=== PATIENT | female | born 1990 | race Two or more races ===

== ENCOUNTER 2023-11-04 17:23 | Emergency (ER) | payer OTHER ==
[~2023-11-04] VITALS: Ht 175.3 cm; Wt 104.3 kg
[2023-11-04] MEDS ORDERED: CARDIZEM30 MG (17:36)
[2023-11-04] MEDS ORDERED: PRENATABS RX T1 EACH (17:36)
[2023-11-04] MEDS ORDERED: PROGESTERONE100 M1 (17:36)
[2023-11-04 18:59] LABS: HEMATOCRIT 42.7 % (36.0-45.00); HEMOGLOBIN 14.3 g/dL (12.0-15.00); MEAN CELL VOLUME 91.7 fL (80.00-100.00); MEAN CORPUSCULAR HEMOGLOBIN 30.7 pg (27.00-32.0); MEAN CORPUSCULAR HGB CONC 33.5 g/dl (32.0-36.0); PLATELET COUNT 223 K/uL (150-450); RED BLOOD COUNT 4.66 M/uL (4.00-6.00); RED CELL DISTRIBUTION WIDTH 13.8 % (11.5-14.5)
[2023-11-04 19:03] LABS: PH,URINE 6.5 (5.0-8.0); URINE APPEARANCE Clear; URINE BILIRRUBIN Negative (NEGATIVE); URINE BLOOD Large; URINE COLOR Orange; URINE GLUCOSE Negative (NEGATIVE); URINE LEUKOCYTE Small; URINE NITRATE Negative; URINE PROTEIN 30 (NEGATIVE)
[2023-11-04 19:05] LABS: URINE BACTERIA 3090.5 uL (0.0-1933); URINE RBC 537.3 uL (0.0-20.8); URINE WBC 63.8 uL (0.0-23.2)
[2023-11-04 19:52] LABS: CALCIUM 8.5 mg/dL (8.5-10.1); CREATININE SERUM 0.9 mg/dL (0.55-1.02); GFR 73.03; POTASSIUM 3.71 mEq/L (3.5-5.1)
== END 2023-11-05 01:07 | disposition home or self-care (01) ==
LOC: ER 17:23
PROVIDERS: Emergency Medicine
DX: O20.0 Threatened abortion (principal); R10.2 Pelvic and perineal pain

== ENCOUNTER 2025-01-27 14:51 | Outpatient (CLI) | payer OTHER ==
[~2025-01-27 14:51] MED LIST: CARDIZEM30 MG; PRENATABS RX T1 EACH; PROGESTERONE100 M1
[2025-01-27] MEDS ORDERED: HYDRALAZINE HCL25 MG PO (14:54)
[2025-01-27 15:01] VITALS: BP 108/65
[2025-01-27 15:10] VITALS: BP 108/65
[2025-01-27 16:58] VITALS: BP 120/70
== END 2025-01-27 17:03 | disposition home or self-care (01) ==
LOC: NST 14:51 → OBS/DEL 14:51
PROVIDERS: ATTEND Obstetrics & Gynecology
DX: O26.899 Other specified pregnancy related conditions, unspecified trimester (principal); T14.8XXA Other injury of unspecified body region, initial encounter; W19.XXXA Unspecified fall, initial encounter

== ENCOUNTER 2025-02-07 10:08 | Outpatient (CLI) | payer OTHER ==
[~2025-02-07 10:08] MED LIST changes: +HYDRALAZINE HCL25 MG PO
== END 2025-02-07 12:28 | disposition home or self-care (01) ==
LOC: NST 10:08
PROVIDERS: ATTEND Obstetrics & Gynecology Maternal & Fetal Medicine
DX: Z3A.27 27 weeks gestation of pregnancy (principal)

== ENCOUNTER 2025-02-27 18:43 | Outpatient (CLI) | payer OTHER ==
[2025-02-27 17:54] VITALS: BP 133/75
[2025-02-27] MEDS ORDERED: RINGERS SOLUTION,LACTATED 1,000 ML IV SCH (19:00)
[2025-02-27 19:53] LABS: URINE BACTERIA 630.3 uL (0.0-1933); URINE EPITHELIAL CELLS 30.8 uL (0.0-38.8); URINE RBC 8.6 uL (0.0-20.8); URINE WBC 13.4 uL (0.0-23.2)
[2025-02-27 19:55] LABS: URINE APPEARANCE Clear; URINE BILIRRUBIN Negative (NEGATIVE); URINE BLOOD Negative; URINE COLOR Yellow; URINE GLUCOSE Negative (NEGATIVE); URINE LEUKOCYTE Negative; URINE NITRATE Negative; URINE PROTEIN Negative (NEGATIVE); URINE UROBILINOGEN 0.2 E.U./dl
[2025-02-27 19:59] LABS: BASO % 0.3 % (0.1-1.2); EOS # 0.08 (0.04-0.54); EOS % 0.8 % (0.7-7.0); HEMATOCRIT 33.5 % (34.1-44.9); HEMOGLOBIN 11.8 g/dL (11.2-15.7); LYMPH # 1.99 (1.18-3.74); LYMPH % 19.1 % (19.3-53.1); MEAN CORPUSCULAR HEMOGLOBIN 31.8 pg (25.6-32.2); MONO # 0.71 (0.24-0.82); MONO % 6.8 % (4.7-12.5); NEUT # 7.54 (1.56-6.13); NEUT % 72.5 % (34.0-71.1); PLATELET COUNT 192 K/uL (163-369); RED BLOOD COUNT 3.71 M/uL (3.93-5.22); RED CELL DISTRIBUTION WIDTH 13.5 % (11.6-14.4); URINE KETONE 40 (NEGATIVE)
[2025-02-27 20:17] LABS: ALBUMIN 2.6 gm/dL (3.4-5.0); BILIRUBIN TOTAL 0.48 mg/dL (0.3-1.2); CALCIUM 8.2 mg/dL (8.5-10.1); CREATININE SERUM 0.57 mg/dL (0.55-1.02); GFR 122.92; GLOBULINA 2.9 G/DL (2.4-3.5); POTASSIUM 3.1 mEq/L (3.5-5.1); TOTAL PROTEIN 5.5 gm/dL (6.4-8.2)
[2025-02-27 23:08] VITALS: BP 121/79
[2025-02-28 06:13] VITALS: BP 106/68; O2SAT 97
[2025-02-28 08:55] VITALS: BP 106/68
== END 2025-02-28 09:54 | disposition home or self-care (01) ==
LOC: OBS/DEL 18:43
PROVIDERS: ATTEND Obstetrics & Gynecology
DX: O26.853 Spotting complicating pregnancy, third trimester (principal); Z3A.30 30 weeks gestation of pregnancy

== ENCOUNTER → 2025-03-10 | Outpatient (CLI) | payer OTHER | END | disposition home or self-care (01) | LOC: NST 09:37 | PROVIDERS: ATTEND Obstetrics & Gynecology Gynecology | DX: Z34.83 Encounter for supervision of other normal pregnancy, third trimester (principal) ==

== ENCOUNTER 2025-03-19 15:34 | Inpatient (IN) | payer OTHER ==
[~2025-03-19] VITALS: Ht 180.3 cm; Wt 1.8 kg
[2025-03-19 15:09] VITALS: BP 144/86
[2025-03-19] MEDS ORDERED: PRENATABS RX T1 EACH PO (15:38)
[2025-03-19] MEDS ORDERED: CHILDREN'S ASPI81 MG PO (15:38)
[2025-03-19] MEDS ORDERED: FOLIC ACID20 MG PO (15:38)
[2025-03-19] MEDS ORDERED: HYDRALAZINE HCL25 MG PO (15:39)
[2025-03-19] MEDS ORDERED: LABETALOL HCL 100 MG TABLET PO ONE (15:44)
[2025-03-19] MEDS ORDERED: LABETALOL HCL 200 MG TABLET PO SCH (15:45)
[2025-03-19] MEDS ORDERED: BETAMETHASONE ACETATE,SOD PHOS 30 MG/5 ML ML ONE (16:09)
[2025-03-19 16:13] LABS: BASO % 0.1 % (0.1-1.2); EOS # 0.06 (0.04-0.54); EOS % 0.7 % (0.7-7.0); LYMPH # 1.57 (1.18-3.74); LYMPH % 18.4 % (19.3-53.1); MEAN PLATELET VOLUME 13.10 fl (9.4-12.4); MONO # 0.85 (0.24-0.82); MONO % 10.0 % (4.7-12.5); NEUT # 6.02 (1.56-6.13); NEUT % 70.4 % (34.0-71.1); RED CELL DISTRIBUTION WIDTH 13.5 % (11.6-14.4); URINE APPEARANCE Cloudy; URINE BILIRRUBIN Negative (NEGATIVE); URINE BLOOD Negative; URINE COLOR Yellow; URINE GLUCOSE Negative (NEGATIVE); URINE KETONE Negative (NEGATIVE); URINE LEUKOCYTE Trace; URINE NITRATE Negative; URINE PROTEIN Negative (NEGATIVE); URINE UROBILINOGEN 1.0 E.U./dl
[2025-03-19] MEDS ORDERED: BETAMETHASONE ACETATE,SOD PHOS 30 MG/5 ML ML IM SCH (16:15)
[2025-03-19] MEDS ORDERED: ACETAMINOPHEN 500 MG GEL..CAP PO PRN (16:15)
[2025-03-19 16:17] LABS: URINE BACTERIA 1309.6 uL (0.0-1933); URINE EPITHELIAL CELLS 77.2 uL (0.0-38.8); URINE WBC 34.1 uL (0.0-23.2)
[2025-03-19 16:42] LABS: URINE RBC 1.1 uL (0.0-20.8)
[2025-03-19 16:43] LABS: TYPE CELLS SQUAMOUS; URINE CAST 0.14 uL (0.0-1.40)
[2025-03-19 17:07] LABS: ALT/SGPT 37.0 U/L (12-78); AST/SGOT 19.0 U/L (15-37); BILIRUBIN TOTAL 0.5 mg/dL (0.3-1.2); BUN CREA RATIO 19.0 (7.0-25.0); CREATININE SERUM 0.52 mg/dL (0.55-1.02); GFR 136.65; GLOBULINA 2.8 G/DL (2.4-3.5); GLUCOSE FASTING 88.0 mg/dL (65-100); OSMOLALITY SERUM 283.0 MOSM/KG (275-295)
[2025-03-19 18:51] VITALS: BP 133/83
[2025-03-19 23:11] VITALS: BP 130/79
[2025-03-20 04:00] VITALS: BP 131/79
[2025-03-20 07:23] VITALS: BP 128/73
[2025-03-20 08:13] VITALS: BP 138/80
[2025-03-20] MEDS ORDERED: PNV,CALCIUM 72/IRON/FOLIC ACID 1 TAB TABLET PO SCH (09:00)
[2025-03-20 09:20] VITALS: BP 144/93
[2025-03-20 16:37] VITALS: BP 145/94
[2025-03-20 19:58] VITALS: BP 140/90
[2025-03-20] MEDS ORDERED: ONDANSETRON 4 MG TAB.RAPDIS PO PRN (20:00)
[2025-03-20] MEDS ORDERED: ONDANSETRON 4 MG TAB.RAPDIS PO ONE (20:04)
[2025-03-21 01:00] VITALS: BP 132/76
[2025-03-21 08:00] VITALS: BP 130/80
[2025-03-21] MEDS ORDERED: LABETALOL HCL 300 MG TABLET PO SCH (09:00)
[2025-03-21 12:45] VITALS: BP 131/83
[2025-03-21 15:54] VITALS: BP 130/70
[2025-03-21 20:00] VITALS: BP 150/80; O2SAT 99
[2025-03-21 23:58] VITALS: BP 130/90
[2025-03-22] VITALS (7 sets, daily range): BP systolic 125–144; BP diastolic 70–91; O2SAT 98
[2025-03-22] MEDS ORDERED: BISACODYL 5 MG TABLET.EC PO SCH (20:15)
[2025-03-22] MEDS ORDERED: ACETAMINOPHEN 500 MG GEL..CAP PO ONE (22:02)
[2025-03-23 03:52] VITALS: BP 133/83
[2025-03-23 07:06] VITALS: BP 141/88
[2025-03-23 10:59] VITALS: BP 150/100
[2025-03-23 12:11] LABS: BASO % 0.2 % (0.1-1.2); EOS # 0.07 (0.04-0.54); EOS % 0.6 % (0.7-7.0); LYMPH # 1.12 (1.18-3.74); LYMPH % 9.2 % (19.3-53.1); MEAN PLATELET VOLUME 13.90 fl (9.4-12.4); MONO # 0.89 (0.24-0.82); MONO % 7.3 % (4.7-12.5); NEUT # 9.96 (1.56-6.13); NEUT % 82.3 % (34.0-71.1); RED CELL DISTRIBUTION WIDTH 14.2 % (11.6-14.4)
[2025-03-23 12:32] LABS: ALT/SGPT 83.0 U/L (12-78); AST/SGOT 37.0 U/L (15-37); BILIRUBIN TOTAL 0.6 mg/dL (0.3-1.2); BUN CREA RATIO 20.0 (7.0-25.0); CREATININE SERUM 0.35 mg/dL (0.55-1.02); GFR 215.79; GLOBULINA 3.0 G/DL (2.4-3.5); GLUCOSE FASTING 73.0 mg/dL (65-100); OSMOLALITY SERUM 280.0 MOSM/KG (275-295)
[2025-03-23 16:18] VITALS: BP 140/70
[2025-03-23] MEDS ORDERED: CYCLOBENZAPRINE HCL 5 MG TABLET PO SCH (21:00)
[2025-03-24] MEDS ORDERED: LABETALOL HCL 300 MG TABLET PO SCH (01:00)
[2025-03-24 01:20] VITALS: BP 128/78
[2025-03-24 08:51] VITALS: BP 135/85
[2025-03-24 14:04] VITALS: BP 130/80
[2025-03-24 16:00] VITALS: BP 149/84
[2025-03-24 20:00] VITALS: BP 136/70
[2025-03-24 20:12] LABS: BASO % 0.1 % (0.1-1.2); EOS # 0.06 (0.04-0.54); EOS % 0.8 % (0.7-7.0); LYMPH # 1.03 (1.18-3.74); LYMPH % 13.1 % (19.3-53.1); MEAN PLATELET VOLUME 14.20 fl (9.4-12.4); MONO # 0.56 (0.24-0.82); MONO % 7.1 % (4.7-12.5); NEUT # 6.17 (1.56-6.13); NEUT % 78.5 % (34.0-71.1); RED CELL DISTRIBUTION WIDTH 14.1 % (11.6-14.4)
[2025-03-24 20:37] LABS: INR 0.98
[2025-03-24 20:38] LABS: ALT/SGPT 85.0 U/L (12-78); AST/SGOT 43.0 U/L (15-37); BILIRUBIN TOTAL 0.64 mg/dL (0.3-1.2); BUN CREA RATIO 14.0 (7.0-25.0); CREATININE SERUM 0.42 mg/dL (0.55-1.02); GFR 174.85; GLOBULINA 3.1 G/DL (2.4-3.5); GLUCOSE FASTING 85.0 mg/dL (65-100); OSMOLALITY SERUM 278.0 MOSM/KG (275-295)
[2025-03-25 01:01] VITALS: BP 115/68
[2025-03-25 08:29] VITALS: BP 123/81
[2025-03-25] MEDS ORDERED: OXYTOCIN 20 UNITS/500ML RL PIGGYBAG IV SCH (08:30)
[2025-03-25] MEDS ORDERED: ERYTHROMYCIN BASE OPHT 1GM EACH TUBE OP ONE (09:55)
[2025-03-25] MEDS ORDERED: OXYTOCIN 10 UNITS/ML VIAL ONE ×2 (09:55→14:29)
[2025-03-25 10:55] LABS: ALT/SGPT 85.0 U/L (12-78); AST/SGOT 38.0 U/L (15-37); BILIRUBIN TOTAL 0.5 mg/dL (0.3-1.2); BUN CREA RATIO 11.0 (7.0-25.0); CREATININE SERUM 0.46 mg/dL (0.55-1.02); GFR 157.42; GLOBULINA 3.2 G/DL (2.4-3.5); GLUCOSE FASTING 103.0 mg/dL (65-100); OSMOLALITY SERUM 284.0 MOSM/KG (275-295)
[2025-03-25] MEDS ORDERED: CLINDAMYCIN PHOSPHATE 150 MG/ML (900mg) ONE (10:58)
[2025-03-25] MEDS ORDERED: RINGERS SOLUTION,LACTATED 1,000 ML IV SCH (11:30)
[2025-03-25] MEDS ORDERED: MORPHINE SULFATE 4 MG/ML CARTRIDGE IV PRN (11:30)
[2025-03-25] MEDS ORDERED: MAGNESIUM SULFATE IN WATER 500 ML IV SCH (11:45)
[2025-03-25] MEDS ORDERED: OXYTOCIN 1,000 ML IV ONE (11:45)
[2025-03-25] MEDS ORDERED: ACETAMINOPHEN 500 MG GEL..CAP PO SCH (12:00)
[2025-03-25] MEDS ORDERED: KETOROLAC TROMETHAMINE 30 MG VIAL IV SCH (12:00)
[2025-03-25] MEDS ORDERED: ONDANSETRON HCL 2 MG/ML VIAL IV SCH (12:00)
[2025-03-25] MEDS ORDERED: MORPHINE SULFATE 4 MG/ML VIAL IV ONE ×2 (12:45→14:10)
[2025-03-25] MEDS ORDERED: MAGNESIUM SULFATE IN WATER 0.04 GM/ML IV.SOLN IV ONE ×2 (13:06→13:25)
[2025-03-25] MEDS ORDERED: KETOROLAC TROMETHAMINE 30 MG VIAL ONE (13:46)
[2025-03-25] MEDS ORDERED: KETOROLAC TROMETHAMINE 30 MG VIAL IV ONE (14:00)
[2025-03-25] MEDS ORDERED: OXYTOCIN 20 UNITS/1000ML RL PIGGYBAG IV ONE (14:00)
[2025-03-25 16:25] VITALS: BP 133/78
[2025-03-25] MEDS ORDERED: GABAPENTIN 300 MG CAPSULE PO SCH (17:00)
[2025-03-25] MEDS ORDERED: SIMETHICONE 125 MG CAPSULE PO SCH (17:00)
[2025-03-25 20:35] VITALS: BP 116/77
[2025-03-26 01:22] VITALS: BP 122/70
[2025-03-26 05:45] VITALS: BP 118/69
[2025-03-26 07:59] LABS: BASO % 0.2 % (0.1-1.2); EOS # 0.12 (0.04-0.54); EOS % 1.2 % (0.7-7.0); LYMPH # 1.62 (1.18-3.74); LYMPH % 16.6 % (19.3-53.1); MEAN PLATELET VOLUME 14.00 fl (9.4-12.4); MONO # 0.88 (0.24-0.82); MONO % 9.0 % (4.7-12.5); NEUT # 7.05 (1.56-6.13); NEUT % 72.6 % (34.0-71.1); RED CELL DISTRIBUTION WIDTH 14.0 % (11.6-14.4)
[2025-03-26 08:00] VITALS: BP 128/82
[2025-03-26] MEDS ORDERED: OxyCODONE HCL 5 MG TABLET (ROXICODONE) PO PRN (08:00)
[2025-03-26] MEDS ORDERED: KETOROLAC TROMETHAMINE 10 MG TABLET PO SCH (08:00)
[2025-03-26 08:06] LABS: ALT/SGPT 91.0 U/L (12-78); AST/SGOT 44.0 U/L (15-37); BILIRUBIN TOTAL 0.5 mg/dL (0.3-1.2); BUN CREA RATIO 13.0 (7.0-25.0); CREATININE SERUM 0.46 mg/dL (0.55-1.02); GFR 157.42; GLOBULINA 3.0 G/DL (2.4-3.5); GLUCOSE FASTING 68.0 mg/dL (65-100); OSMOLALITY SERUM 279.0 MOSM/KG (275-295)
[2025-03-26] MEDS ORDERED: DOCUSATE SODIUM 100MG CAP PO SCH (09:00)
[2025-03-26 17:00] VITALS: BP 136/90
[2025-03-26 21:00] VITALS: BP 128/84
[2025-03-27 00:23] VITALS: BP 124/75
[2025-03-27 05:42] VITALS: BP 130/72
[2025-03-27 08:00] VITALS: BP 141/84
[2025-03-27 08:07] LABS: BASO % 0.2 % (0.1-1.2); EOS # 0.12 (0.04-0.54); EOS % 1.4 % (0.7-7.0); LYMPH # 1.82 (1.18-3.74); LYMPH % 21.1 % (19.3-53.1); MEAN PLATELET VOLUME 13.90 fl (9.4-12.4); MONO # 0.75 (0.24-0.82); MONO % 8.7 % (4.7-12.5); NEUT # 5.89 (1.56-6.13); NEUT % 68.3 % (34.0-71.1); RED CELL DISTRIBUTION WIDTH 14.2 % (11.6-14.4)
[2025-03-27 08:47] LABS: ALT/SGPT 96.0 U/L (12-78); AST/SGOT 42.0 U/L (15-37); BILIRUBIN TOTAL 0.56 mg/dL (0.3-1.2); BUN CREA RATIO 15.0 (7.0-25.0); CREATININE SERUM 0.41 mg/dL (0.55-1.02); GFR 179.78; GLOBULINA 2.9 G/DL (2.4-3.5); GLUCOSE FASTING 61.0 mg/dL (65-100); OSMOLALITY SERUM 281.0 MOSM/KG (275-295)
[2025-03-27] MEDS ORDERED: NIFEDIPINE 30 MG TAB.SA.OSM PO SCH ×2 (09:19→17:00)
[2025-03-27 16:00] VITALS: BP 136/91
[2025-03-27 20:00] VITALS: BP 130/82
[2025-03-28 00:27] VITALS: BP 139/85
[2025-03-28 06:00] VITALS: BP 137/81
[2025-03-28 08:42] VITALS: BP 135/89
[2025-03-28 08:43] VITALS: BP 140/70
[2025-03-28 08:47] LABS: BASO % 0.2 % (0.1-1.2); EOS # 0.17 (0.04-0.54); EOS % 1.7 % (0.7-7.0); LYMPH # 1.94 (1.18-3.74); LYMPH % 19.1 % (19.3-53.1); MEAN PLATELET VOLUME 13.40 fl (9.4-12.4); MONO # 0.58 (0.24-0.82); MONO % 5.7 % (4.7-12.5); NEUT # 7.41 (1.56-6.13); NEUT % 72.9 % (34.0-71.1); RED CELL DISTRIBUTION WIDTH 14.1 % (11.6-14.4)
[2025-03-28 09:29] LABS: ALT/SGPT 146.0 U/L (12-78); AST/SGOT 68.0 U/L (15-37); BILIRUBIN TOTAL 0.6 mg/dL (0.3-1.2); BUN CREA RATIO 11.0 (7.0-25.0); CREATININE SERUM 0.55 mg/dL (0.55-1.02); GFR 128.09; GLOBULINA 3.4 G/DL (2.4-3.5); GLUCOSE FASTING 121.0 mg/dL (65-100); OSMOLALITY SERUM 286.0 MOSM/KG (275-295)
[2025-03-28 14:07] VITALS: BP 132/84
[2025-03-28 16:05] VITALS: BP 135/85
[2025-03-29] VITALS: BP 130/80
[2025-03-29 04:00] VITALS: BP 129/77
[2025-03-29] MEDS ORDERED: MAGNESIUM SULFATE IN WATER 500 ML IV SCH (07:45)
[2025-03-29 08:00] VITALS: BP 125/70
[2025-03-29 16:54] VITALS: BP 143/88
[2025-03-30 00:22] VITALS: BP 131/88
[2025-03-30 04:00] VITALS: BP 126/85
[2025-03-30 06:42] LABS: BASO % 0.3 % (0.1-1.2); EOS # 0.25 (0.04-0.54); EOS % 2.2 % (0.7-7.0); LYMPH # 2.59 (1.18-3.74); LYMPH % 23.2 % (19.3-53.1); MEAN PLATELET VOLUME 12.60 fl (9.4-12.4); MONO # 0.85 (0.24-0.82); MONO % 7.6 % (4.7-12.5); NEUT # 7.37 (1.56-6.13); NEUT % 66.3 % (34.0-71.1); RED CELL DISTRIBUTION WIDTH 13.9 % (11.6-14.4)
[2025-03-30 07:04] LABS: ALT/SGPT 182.0 U/L (12-78); AST/SGOT 58.0 U/L (15-37); BILIRUBIN TOTAL 0.65 mg/dL (0.3-1.2); BUN CREA RATIO 19.0 (7.0-25.0); CREATININE SERUM 0.47 mg/dL (0.55-1.02); GFR 153.56; GLOBULINA 3.3 G/DL (2.4-3.5); GLUCOSE FASTING 68.0 mg/dL (65-100); LDH 300.0 U/L (84-246); OSMOLALITY SERUM 276.0 MOSM/KG (275-295)
[2025-03-30 07:10] LABS: INR < 0.93
[2025-03-30 07:11] LABS: hav igm Negative (Negative); hep b c Negative (Negative); hep b s ag Negative (Negative)
[2025-03-30 08:29] VITALS: BP 126/79
== END 2025-03-30 17:49 | disposition home or self-care (01) | DRG 788 ==
LOC: OB/GYN 15:34 → LDR 15:34 → OB/GYN 03-20 08:40 → LDR 03-22 13:30 → OB/GYN 03-23 09:02
PROVIDERS: Obstetrics & Gynecology; ADMIT Obstetrics & Gynecology Maternal & Fetal Medicine; ATTEND Obstetrics & Gynecology Maternal & Fetal Medicine
PROC: 4A1HXCZ Monitoring of Products of Conception, Cardiac Rate, External Approach (ICD-10-PCS; 2025-03-19)
PROC: BY4FZZZ Ultrasonography of Third Trimester, Single Fetus (ICD-10-PCS; 2025-03-21)
PROC: 10D00Z1 Extraction of Products of Conception, Low, Open Approach (ICD-10-PCS; principal; 2025-03-25 12:00)
PROC: BW40ZZZ Ultrasonography of Abdomen (ICD-10-PCS; 2025-03-30)
DX: O14.14 Severe pre-eclampsia complicating childbirth (principal); O36.8130 Decreased fetal movements, third trimester, not applicable or unspecified; O26.843 Uterine size-date discrepancy, third trimester; O13.4 Gestational [pregnancy-induced] hypertension without significant proteinuria, complicating childbirth; O60.14X0 Preterm labor third trimester with preterm delivery third trimester, not applicable or unspecified; Z3A.34 34 weeks gestation of pregnancy; Z37.0 Single live birth

== ENCOUNTER → 2025-04-03 | Emergency (ER) | payer OTHER ==
[~2025-04-03] MED LIST changes: +CHILDREN'S ASPI81 MG PO; +FOLIC ACID20 MG PO; +PRENATABS RX T1 EACH PO
== END | disposition left against medical advice (07) ==
LOC: ER 18:17
DX: Z53.21 Procedure and treatment not carried out due to patient leaving prior to being seen by health care provider (principal)